=== PATIENT | male | born 1960 | race Caucasian/White ===

== ENCOUNTER 2021-03-08 10:09 | Emergency (ER) | payer MEDICAID ==
[~2021-03-08] VITALS: Ht 177.8 cm; Wt 59.0 kg
--- NOTE | 2021-03-08 10:43 | NUR ---
Pt states he had right ear ache about 2 weeks ago, and it got better, but took a flight a few days ago, and seems to have returned worse. Pt denies CP, SOB, dizziness, n/v, no other complaints, no distress noted.
[2021-03-08] MEDS ORDERED: AMOX875T2 PO (10:47)
--- NOTE | 2021-03-08 11:00 | NUR ---
Patient discharged to home in stable condition. Rx given. No signs of ascute distress noted. Written and verbal after care instructions given. Patient verbalizes understanding of instructions. Stressed follow up or return to ER for worsening s/s.
[2021-03-08 11:15] VITALS: BP 111/38
== END 2021-03-08 11:00 | disposition home or self-care (01) ==
LOC: ER 10:09
DX: T70.0XXA Otitic barotrauma, initial encounter (principal); H92.01 Otalgia, right ear; W94.3 Exposure to rapid changes in air pressure during descent; M06.9 Rheumatoid arthritis, unspecified; J44.9 Chronic obstructive pulmonary disease, unspecified
CPT/HCPCS: A4663